=== PATIENT | male | born 1960 | race African-American/Black ===

== ENCOUNTER → 2023-10-02 15:21 | Outpatient (REF) | payer MEDICARE, BC, SELFPAY ==
[2023-10-02 17:14] LABS: PSA, Total - Screen 2.54 ng/ml (0.0-4.0)
== END ==
LOC: REG 15:21
PROVIDERS: ATTENDING PHYSICIAN Surgery; FAMILY PHYSICIAN Internal Medicine Cardiovascular Disease
DX: Z12.5 Encounter for screening for malignant neoplasm of prostate (principal)
CPT/HCPCS: 36415; G0103

== ENCOUNTER → 2024-10-17 17:07 | Outpatient (REF) | payer MEDICARE, BC, SELFPAY ==
[2024-10-17 18:23] LABS: PSA, Total - Diagnostic 2.21 ng/ml (0.0-4.0)
== END ==
LOC: REG 17:07
PROVIDERS: ATTENDING PHYSICIAN Surgery; FAMILY PHYSICIAN Family Medicine; REFERRING PHYSICIAN Internal Medicine Nephrology
DX: Z12.5 Encounter for screening for malignant neoplasm of prostate (principal); N40.1 Benign prostatic hyperplasia with lower urinary tract symptoms
CPT/HCPCS: 36415; 84153

== ENCOUNTER 2025-03-13 10:04 | Inpatient (IN) | payer MEDICARE, BC, SELFPAY ==
[2024-09-20 14:14] VITALS: BMI 31.1
[2024-09-20 14:25] LABS: Hematocrit 40.2 % (39.0-52.0); Hemoglobin 13.6 g/dL (13.0-18.0); Mean Corp Hgb Conc. 33.8 g/dL (33.0-37.0); Mean Corpuscular Volume 91.8 fL (80.0-94.0); Platelet Count 121 10^3/uL (130-400); Red Cell Dist. Width 13.8 % (11.5-14.5)
[2024-09-20 14:31] LABS: ALT (SGPT) 47 U/L (0-50); AST (SGOT) 39 U/L (17-59); Albumin 4.4 g/dl (3.5-5.0); Alkaline Phosphatase 95 U/L (38-126); Blood Urea Nitrogen 24 mg/dl (9-20); Calcium 9.9 mg/dl (8.4-10.2); Carbon Dioxide 37 mmol/L (22-30); Chloride 99 mmol/L (98-107); Estimated Creatinine Clearance 84 ml/min; Glucose 83 mg/dl (70-99); Potassium 3.4 mmol/L (3.5-5.1); Sodium 142 mmol/L (135-145); Total Protein 6.8 g/dl (6.3-8.2); eGFR > 60.00
[2024-09-20 15:03] LABS: Glycohemoglobin (HgbA1c) 5.0 % (4.0-5.6)
[2024-09-20 18:25] VITALS: BMI 31.1
--- NOTE | 2024-09-21 09:33 | CM ---
Addendum entered by Spring Benavides RN 09/22/24 16:54:
CM spoke with patient regarding his post operative discharge services. Patient stated that he lives alone and his family and friends are out of state. Patient further stated that he has been to rehab in the past after his kidney transplant and would
be agreeable to going again. CM stated that SNF may not be covered as it would not be a guarantee that he would meet the three midnight threshold for Medicare SNF coverage. CM discussed private pay aides in the home, but patient states that he would
not be able to afford it.
Patient did stated that he was at his [employer] for clearance and was informed that they will post pone surgery until Cardiology work up is complete.
CM will remain available as needed.
Addendum entered by Spring Benavides RN 09/22/24 12:36:
CM called patient and he advised that he was driving to two doctor appointments. Patient will call CM back to discuss his concerns .
Addendum entered by Spring Benavides RN 09/22/24 12:33:
CM left message to discuss home care options.
Original Note:
SG spoke with Deonte at [facility] offer to confirm patient's OR date. CM reviewed chart. CM left message for patient to discuss post op care.
--- NOTE | 2025-02-02 15:52 | CM ---
Addendum entered by Spring Benavides RN 02/23/25 13:02:
Cm spoke with patient at length regarding home care options. Patient has been known to [facility]. CM sent referral via care port.
Addendum entered by Spring Benavides RN 02/23/25 11:53:
CM was updated by SARAI Meraz that patient will need home care. Cm left message to discuss home care options.
Addendum entered by Spring Benavides RN 02/02/25 15:58:
Patient stated that he is currently not receiving Medicaid.
Original Note:
CM spoke with patient at length regarding discharge planning. Patient asserts that he has not friends or family to assist him post operatively. Patient stated that he will have to take an Uber to his surgery, but may have a friend be able to drive
him home after. Patient does have a history of VN, but is currently not on service. Patient has been to SNF in the past at [facility] in [place] and he would be agreeable to placement in [facility]. CM attempted offered private pay HIDE GRADER care, but
patient does not have the funds to pay for private pay aids.
Patient stated that since he has been disable for 'a long time' patient is unable to 'make friends' as he is housebound due to the pain in his knees. He feels he is unable to care for himself post operatively due to his disability. Patient had been
able to drive himself to his HD appointments in the past, but his knee pain is restricting his ability to leave the home.
CM advise that he would have to stay three midnights if placement was determined to be his discharge plan.
CM will remain available as needed.
[2025-02-21 14:09] VITALS: BMI 31.3
[2025-02-21 15:02] LABS: ALT (SGPT) 29 U/L (0-50); AST (SGOT) 30 U/L (17-59); Albumin 4.1 g/dl (3.5-5.0); Alkaline Phosphatase 78 U/L (38-126); Blood Urea Nitrogen 23 mg/dl (9-20); Calcium 10.0 mg/dl (8.4-10.2); Carbon Dioxide 31 mmol/L (22-30); Chloride 101 mmol/L (98-107); Estimated Creatinine Clearance 84 ml/min; Glucose 86 mg/dl (70-99); Potassium 3.8 mmol/L (3.5-5.1); Sodium 136 mmol/L (135-145); Total Protein 6.4 g/dl (6.3-8.2); eGFR > 60.00
[2025-02-21 15:05] LABS: Hematocrit 39.8 % (39.0-52.0); Hemoglobin 13.4 g/dL (13.0-18.0); Mean Corp Hgb Conc. 33.7 g/dL (33.0-37.0); Mean Corpuscular Volume 89.4 fL (80.0-94.0); Platelet Count 104 10^3/uL (130-400); Red Cell Dist. Width 14.3 % (11.5-14.5)
[2025-02-21 16:07] VITALS: BMI 31.3
[2025-02-22 08:54] LABS: Glycohemoglobin (HgbA1c) 5.2 % (4.0-5.6)
--- NOTE | 2025-03-10 16:13 | CM ---
Patient called this Cm stating that he made an outpatient appointment at [facility] for 03/16. He has alos made arrangements with the [facility] for transportation. CM advised that patient could not have home care and outpatient PT> Patient discussed SNF and
patient would be agreeable to placement in the [facility].
Patient stated that he has no help at home and his friends are away. He will contact his friend to see if they are able to provide transportation home. CM advised that PT will evaluate patient and make further recommendations.
PLAN: Pending PT evaluation.
[2025-03-13] VITALS (10 sets, daily range): BP systolic 121–164; BP diastolic 62–79; BMI 31.3
[2025-03-13] MEDS: NORMOSOL-R/PLASMALYTE-A 1000 IV ×2 (10:54→18:22)
[2025-03-13] MEDS: TYLENOL 650 MG PO ×4 (10:55→23:15)
--- NOTE | 2025-03-13 11:04 | W.PN.ORTHO ---
Today's Communication / Plan
-
DISCHARGE DESTINATION: Tentatively home with PT and VN. Patient is
quite unstable, which is multifactorial due to end-stage joint
disease of both knees as well as degenerative disc disease and
spinal stenosis, which appears to be affecting right foot with
potential footdrop on exam. He does ambulate with device and
struggles with activities of daily living at present. We will
arrange for home care. In the event he is unsafe
functionally, he will be transferred to skilled facility rehab for
further care. We will re-evaluate day of discharge.
Assessment
.
Dressing:
Clean, dry and intact.
Assessment:
Renal transplant
-no nephrotoxic agents
-taper steroid for pain then resume home dose OP
-IVF
-BMP/hgb POD#1-low threshold for transfusion given risk of EDUARDO
Plan
.
Surgery / Date: R TKA Dr Mills 03/13/25
DVT Prophylaxis: Other (Eliquis 2.5mg bid + SCD)
Activity:
Out of bed.
PT/OT
Discharge Plan: Home w/ VN and SNF
Vital Signs and Labs
.
Vital Signs and Labs:
Lab Results
02/21/25 13:35
02/21/25 13:35
Temp Pulse Resp BP Pulse Ox
97.4 F 51 16 159/69 97
03/13/25 10:42 03/13/25 10:42 03/13/25 10:42 03/13/25 10:42 03/13/25 10:42
--- NOTE | 2025-03-13 11:32 | W.DS.TRANS ---
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
-
Discharge Instructions:
Discharge Diagnosis/Procedures R TKA Dr Mills 03/13/25
Diet As tolerated
Activity With Walker
Driving Restrictions No driving
Bathing Restrictions OK to Shower
Other Services PT,VN
Instructions:
Stand-Alone Forms: Total Hip/Knee Replacement D/C
Changes to Home Medications: Yes
Discharge Medications:
DC Medications w/original date entered in [employer]
azelastine 137 mcg (0.1 %) nasal spray 2 spray intranasal DAILY 09/02/24
benzonatate 100 mg capsule 100 mg PO .TIDPRN Cough 09/02/24
cholecalciferol (vitamin D3) 125 mcg (5,000 unit) tablet (Vitamin D3) 125 mcg PO DAILY 09/02/24
famotidine 20 mg tablet 20 mg PO DAILY 09/02/24
levothyroxine 75 mcg tablet 75 mcg PO DAILY 09/02/24
lovastatin 10 mg tablet 10 mg PO QPM 09/02/24
prednisone 5 mg tablet 5 mg PO DAILY 09/02/24
Held on 03/13/25. Instructions: Resume on 03/20/25.
tacrolimus 1 mg capsule,extended release 24 hr 1 mg PO BID 09/02/24
mupirocin 2 % topical ointment 1 applic intranasal BID #1 tube 09/20/24
melatonin 3 mg tablet 3 mg PO HS PRN insomnia 02/20/25
metoprolol succinate 25 mg tablet,extended release 24 hr 25 mg PO HS 02/20/25
sacubitril 24 mg-valsartan 26 mg tablet (Entresto) 1 tab PO BID 02/20/25
apixaban 2.5 mg tablet (Eliquis) 2.5 mg PO BID Blood clot prevention/tx #90 tabs 02/21/25
famotidine 20 mg tablet 20 mg PO HS GI prophylaxis #30 tabs 02/21/25
ondansetron 4 mg disintegrating tablet 4 mg PO Q6H PRN n/v #20 tabs 02/21/25
oxycodone 5 mg tablet 5 mg PO Q6H PRN 1 tab moderate pain, 2 tabs severe pain #30 tabs 02/21/25
prednisone 10 mg tablet 40 mg (4 x 10 mg) PO TAPER inflammation #10 tabs 02/21/25
gabapentin 100 mg tablet 100 mg PO TID #0 tabs 03/13/25
nifedipine 30 mg tablet,extended release 24 hr 30 mg PO BID #0 tabs 03/13/25
Home Medication Changes
apixaban 2.5 mg tablet (Eliquis) 2.5 mg PO BID Blood clot prevention/tx #90 tabs 02/21/25
famotidine 20 mg tablet 20 mg PO HS GI prophylaxis #30 tabs 02/21/25
ondansetron 4 mg disintegrating tablet 4 mg PO Q6H PRN n/v #20 tabs 02/21/25
oxycodone 5 mg tablet 5 mg PO Q6H PRN 1 tab moderate pain, 2 tabs severe pain #30 tabs 02/21/25
prednisone 10 mg tablet 40 mg (4 x 10 mg) PO TAPER inflammation #10 tabs 02/21/25
gabapentin 100 mg tablet 100 mg PO TID #0 tabs 03/13/25
Pending Results: No
[2025-03-13] MEDS: ROXICODONE 10 MG PO (18:23)
[2025-03-13] MEDS: LIPITOR 10 MG PO (18:23)
[2025-03-13] MEDS: SYNTHROID PO (18:52)
[2025-03-13] MEDS: SENOKOT 17.2 MG PO (20:32)
[2025-03-13] MEDS: COLACE 100 MG PO (20:32)
[2025-03-13] MEDS: PROGRAF 1 MG PO (20:33)
[2025-03-13] MEDS: ELIQUIS 2.5 MG PO (20:33)
[2025-03-13] MEDS: ENTRESTO 24 MG/26 MG 1 TAB PO (20:34)
[2025-03-13] MEDS: ANCEF 5 IV (20:36)
[2025-03-13] MEDS: DECADRON 4 MG PO (20:36)
[2025-03-13] MEDS: PROCARDIA XL (EXTENDED RELEASE) 30 MG PO (20:36)
[2025-03-13] MEDS: BACTROBAN 2% OINTMENT 1 APPLIC NASAL (20:37)
[2025-03-13] MEDS: NEURONTIN 300 MG PO (22:56)
[2025-03-13] MEDS: TOPROL XL 25 MG PO (22:56)
[2025-03-13] MEDS: MELATONIN 3 MG PO (22:57)
[2025-03-13] MEDS: PEPCID 20 MG PO (22:57)
[2025-03-14] VITALS (9 sets, daily range): BP systolic 122–182; BP diastolic 61–78; PULSE 60–84; O2SAT 96–97
[2025-03-14] MEDS: ZOFRAN 4 MG IV ×2 (02:42→12:48)
[2025-03-14] MEDS: ANCEF 5 IV (04:29)
[2025-03-14] MEDS: TYLENOL 650 MG PO ×5 (04:33→23:22)
[2025-03-14] MEDS: SYNTHROID 75 MCG PO (06:29)
[2025-03-14 07:39] LABS: Hemoglobin 13.4 g/dL (13.0-18.0)
[2025-03-14 08:11] LABS: Blood Urea Nitrogen 17 mg/dl (9-20); Calcium 9.2 mg/dl (8.4-10.2); Carbon Dioxide 33 mmol/L (22-30); Chloride 100 mmol/L (98-107); Estimated Creatinine Clearance 105 ml/min; Glucose 120 mg/dl (70-99); Potassium 3.6 mmol/L (3.5-5.1); Sodium 139 mmol/L (135-145); eGFR > 60.00
[2025-03-14] MEDS: ELIQUIS 2.5 MG PO ×2 (08:37→19:52)
[2025-03-14] MEDS: SENOKOT 17.2 MG PO ×2 (08:37→19:52)
[2025-03-14] MEDS: COLACE 100 MG PO ×2 (08:37→19:47)
[2025-03-14] MEDS: DECADRON 4 MG PO ×2 (08:38→19:52)
[2025-03-14] MEDS: PROGRAF 1 MG PO ×2 (08:38→19:52)
[2025-03-14] MEDS: BACTROBAN 2% OINTMENT 1 APPLIC NASAL ×2 (08:38→19:46)
[2025-03-14] MEDS: ENTRESTO 24 MG/26 MG 1 TAB PO ×2 (08:38→19:50)
[2025-03-14] MEDS: ROXICODONE 10 MG PO ×2 (08:40→12:48)
[2025-03-14] MEDS: PROCARDIA XL (EXTENDED RELEASE) PO (08:42)
--- NOTE | 2025-03-14 09:16 | CM ---
Addendum entered by Spring Benavides RN 03/14/25 12:09:
CM spoke with patient. Patient is agreeable to rehab. Patient stated that he would be agreeable to [facility] or [facility]. CM updated [facility] that patient would be ready for discharge on . CM sent updated PT/OT notes.
Addendum entered by Spring Benavides RN 03/14/25 10:06:
Cm was advised that patient will need SNF. CM will discuss options with patient. Patient has been accepted by [facility]. CM will await feedback from [facility].
Original Note:
Cm reviewed medical records. Patient is pending PT/OT evaluation. CM spoke with ortho PA regarding discharge plan. CM will await PT/OT.
--- NOTE | 2025-03-14 09:59 | W.PN.ORTHO ---
Today's Communication / Plan
-
Continue to work w/ PT and OT.
Trend Cr to ensure renal stability.
D/c when clinically stable
Assessment
.
Distal Motor Intact: Yes
Dressing:
Small areas of old bleeding along the incision line.
Assessment:
R knee OA s/p R TKA w/ Dr Mills 03/13/25
DVT prophylaxis - Eliquis 2.5 mg PO BID, b/l venous foot pumps
HTN - BPs stable
PVCs - rhythm stable on tele
- Continue BB
Lower extremity DVT, provoked after renal transplant, 2022 - Eliquis initiated at renally adjusted dose
- Early mobility as tolerated
- Venous foot pumps while immobile
Asthma
Obstructive sleep apnea, resolved with weight loss
- O2 stable on RA
- Decadron w/ transition to Prednisone
- Continue IS
ESRD s/p renal transplant 2022 - Trend Cr
- Minimize nephrotoxins such as NSAIDs
- Promote adequate hydration
- Continue Tacrolimus
- Cefadroxil upon d/c
GERD, remote GI bleed - continue Pepcid
Irritable bowel, mixed - Colace and Senna for now
- Consider Miralax
- Adequate hydration, early mobility at tolerated, and minimizing opioids advised
Degenerative disc disease w/ right foot drop/spinal stenosis
Balance difficulties
- Work w/ PT and OT as able
- Therapy recommending SNF for safety concerns at home
BPH without urinary retention - voiding appropriately
- Flomax prn
Right hand weakness with paresthesia
Essential tremor
Hypothyroidism
Hyperparathyroidism, status post partial parathyroidectomy
Anxiety
History of babesiosis
Lyme's disease 2018
Insomnia
Chronic thrombocytopenia
Obesity, BMI 31.3
Plan
.
Surgery / Date: R TKA w/ Dr Mills 03/13/25
DVT Prophylaxis: Other (Eliquis )
Activity:
Out of bed.
PT/OT
Discharge Plan: SNF
Subjective
.
.:
Patient resting comfortably in his bed.
R knee pain well controlled w/ current pain meds.
Denies any new significant complaints.
AM labs stable.
D/c planning ongoing. PT/OT recommending SNF.
Vital Signs and Labs
.
Vital Signs and Labs:
Lab Results
03/14/25 07:05
03/14/25 07:05
Temp Pulse Resp BP Pulse Ox
98.2 F 56 16 122/66 98
03/14/25 07:20 03/14/25 07:20 03/14/25 07:20 03/14/25 07:20 03/14/25 07:20
Non-invasive Hgb result: 13.4
Physical Exam
-
HEENT: No pallor, cyanosis, or jaundice. Throat clear.
NECK: Supple. No JVD.
RESPIRATORY: Lungs clear to auscultation.
CVS: S1, S2 normal. RRR w/ ectopy.
ABDOMEN: Soft, non-tender. No distension. Obese.
EXTREMITIES: Strength equal, no calf pain with palpation/dorsiflexion. Calves soft.
LEGAL TRANSCRIPTIONIST: AOx3. No focal deficits. metal bonding press operator grossly intact
[2025-03-14] MEDS: PROCARDIA XL (EXTENDED RELEASE) 30 MG PO ×2 (12:03→19:52)
[2025-03-14 13:25] LABS: Platelet Count 127 10^3/uL (130-400)
[2025-03-14] MEDS: TYLENOL PO (16:30)
[2025-03-14] MEDS: NEURONTIN 100 MG PO (16:49)
[2025-03-14] MEDS: LIPITOR 10 MG PO (18:24)
[2025-03-14] MEDS: ROXICODONE 5 MG PO (18:24)
[2025-03-14] MEDS: NEURONTIN 300 MG PO (21:05)
[2025-03-14] MEDS: MELATONIN 3 MG PO (21:06)
[2025-03-14] MEDS: PEPCID 20 MG PO (21:06)
[2025-03-14] MEDS: TOPROL XL 25 MG PO (21:06)
[2025-03-15] VITALS (8 sets, daily range): BP systolic 126–150; BP diastolic 67–80; PULSE 56–57; O2SAT 95–98
[2025-03-15] MEDS: ROXICODONE 5 MG PO ×2 (00:24→08:09)
[2025-03-15] MEDS: TYLENOL 650 MG PO ×5 (03:12→20:12)
--- NOTE | 2025-03-15 04:04 | DOWNTIME ---
There was a [employer] Delivery Consultant Downtime on 03/15/2025 from 0100 to 03/15/2025 at 0215. Downtime documentation of patient's care, including medication administrations, has been reconciled in the electronic record per guidelines. Refer to the
patient's paper chart under the miscellaneous tab to see printed paper medication records and downtime forms.
[2025-03-15] MEDS: SYNTHROID 75 MCG PO (06:09)
[2025-03-15] MEDS: PROCARDIA XL (EXTENDED RELEASE) 30 MG PO ×2 (08:06→20:14)
[2025-03-15] MEDS: PROGRAF 1 MG PO ×2 (08:07→20:11)
[2025-03-15] MEDS: DELTASONE 40 MG PO (08:07)
[2025-03-15] MEDS: ELIQUIS 2.5 MG PO ×2 (08:07→20:11)
[2025-03-15] MEDS: ENTRESTO 24 MG/26 MG 1 TAB PO ×2 (08:07→20:12)
[2025-03-15] MEDS: COLACE 100 MG PO ×2 (08:07→20:12)
[2025-03-15] MEDS: NEURONTIN 100 MG PO (08:07)
[2025-03-15] MEDS: SENOKOT 17.2 MG PO ×2 (08:08→20:11)
--- NOTE | 2025-03-15 08:39 | CM ---
[facility] has accepted for tomorrow transfer.
[facility]
Report
[phone]
--- NOTE | 2025-03-15 09:11 | W.PN.ORTHO ---
Today's Communication / Plan
-
Await BMP results.
Adjust pain meds in an attempt to reduce nausea. Continue to monitor.
D/c when clinically stable.
Assessment
.
Distal Motor Intact: Yes
Dressing:
Small areas of bleeding along the incision line.
Assessment:
R knee OA s/p R TKA w/ Dr Mills 03/13/25
DVT prophylaxis - Eliquis 2.5 mg PO BID, b/l venous foot pumps
HTN - BPs overall stable
PVCs - rhythm stable on tele
- Continue BB
Lower extremity DVT, provoked after renal transplant, 2022 - Eliquis initiated at renally adjusted dose
- Early mobility as tolerated
- Venous foot pumps while immobile
Asthma
Obstructive sleep apnea, resolved with weight loss
- O2 stable on RA
- Decadron w/ transition to Prednisone. Prednisone taper started POD 2
- Continue IS
ESRD s/p renal transplant 2022 - Trend Cr
- Minimize nephrotoxins such as NSAIDs
- Promote adequate hydration
- Continue Tacrolimus
- Cefadroxil upon d/c
GERD, remote GI bleed - continue Pepcid
Irritable bowel, mixed - continue Colace and Senna
- Will add Miralax per preference
- Adequate hydration, early mobility at tolerated, and minimizing opioids advised
Degenerative disc disease w/ right foot drop/spinal stenosis
Balance difficulties
- Work w/ PT and OT as able
- Therapy recommending SNF for safety concerns at home - bed obtained at [facility] for tomorrow
BPH without urinary retention - voiding appropriately
- Flomax prn
Insomnia - will add muscle relaxant HSPRN per pt preference
Chronic thrombocytopenia - platelet count improved POD 1
Right hand weakness with paresthesia
Essential tremor
Hypothyroidism
Hyperparathyroidism, status post partial parathyroidectomy
Anxiety
History of babesiosis
Lyme's disease 2017
Obesity, BMI 31.3
Plan
.
Surgery / Date: R TKA w/ Dr Mills 03/13/25
DVT Prophylaxis: Other (Eliquis BID )
Activity:
Out of bed.
PT/OT
Discharge Plan: SNF
Subjective
.
.:
Patient resting comfortably in bed.
Continues w/ nausea from Oxycodone - will switch to oral Morphine per pt preference. Zofran TID today to stay ahead of nausea.
Denies any other new significant complaints.
BMP pending.
Vital Signs and Labs
.
Vital Signs and Labs:
Lab Results
03/14/25 07:05
Temp Pulse Resp BP Pulse Ox
98.6 F 67 16 150/75 96
03/15/25 03:00 03/15/25 03:00 03/15/25 03:00 03/15/25 08:06 03/15/25 03:00
Non-invasive Hgb result: 12.1
Physical Exam
-
HEENT: No pallor, cyanosis, or jaundice. Throat clear.
NECK: Supple. No JVD.
RESPIRATORY: Lungs clear to auscultation.
CVS: S1, S2 normal. RRR.�
ABDOMEN: Soft, non-tender. No distension. Obese.
EXTREMITIES: Expected post-surgical R knee edema. Strength equal, no calf pain with palpation/dorsiflexion. Calves soft. Chronic R-sided foot drop.
VICE PRESIDENT OF NURSING: AOx3. No focal deficits. front desk receptionist grossly intact
[2025-03-15 09:43] LABS: Blood Urea Nitrogen 17 mg/dl (9-20); Calcium 10.2 mg/dl (8.4-10.2); Carbon Dioxide 35 mmol/L (22-30); Chloride 97 mmol/L (98-107); Estimated Creatinine Clearance 105 ml/min; Glucose 94 mg/dl (70-99); Potassium 3.5 mmol/L (3.5-5.1); Sodium 139 mmol/L (135-145); eGFR > 60.00
--- NOTE | 2025-03-15 10:42 | CM ---
CM updated patient with plan for [facility] tomorrow.
Patient requested assistance with his car, as his friends will be picking it up from the parking lot this weekend. He also asked if security can assist in obtaining his bag from his car. CM spoke with security and they will assist patient with car
and retrieving his bag.
[2025-03-15] MEDS: MIRALAX 17 GRAMS PO (12:16)
[2025-03-15] MEDS: LIDOCAINE 4% PATCH 2 PATCH TOPICAL (12:17)
[2025-03-15] MEDS: NEURONTIN 200 MG PO ×2 (15:33→22:42)
[2025-03-15] MEDS: ZOFRAN 4 MG IV ×2 (15:33→22:45)
[2025-03-15] MEDS: LIPITOR 10 MG PO (17:07)
[2025-03-15] MEDS: MORPHINE SULFATE 7.5 MG PO (20:25)
[2025-03-15] MEDS: REMOVE LIDOCAINE PATCH 1 PATCH REMOVE (20:31)
[2025-03-15] MEDS: TOPROL XL 25 MG PO (22:42)
[2025-03-15] MEDS: PEPCID 20 MG PO (22:44)
[2025-03-15] MEDS: MELATONIN 3 MG PO (22:44)
[2025-03-16] MEDS: TYLENOL PO (01:04)
[2025-03-16 03:00] VITALS: BP 115/54
[2025-03-16] MEDS: TYLENOL 650 MG PO ×3 (04:24→12:41)
[2025-03-16] MEDS: SYNTHROID 75 MCG PO (04:24)
[2025-03-16 05:02] LABS: COVID-19 Antigen Negative (Negative)
[2025-03-16 07:05] VITALS: BP 135/67
[2025-03-16 07:07] LABS: Blood Urea Nitrogen 23 mg/dl (9-20); Calcium 9.9 mg/dl (8.4-10.2); Carbon Dioxide 35 mmol/L (22-30); Chloride 96 mmol/L (98-107); Estimated Creatinine Clearance 94 ml/min; Glucose 85 mg/dl (70-99); Potassium 3.0 mmol/L (3.5-5.1); Sodium 138 mmol/L (135-145); eGFR > 60.00
[2025-03-16] MEDS: PROGRAF 1 MG PO (08:07)
[2025-03-16] MEDS: ENTRESTO 24 MG/26 MG 1 TAB PO (08:07)
[2025-03-16] MEDS: NEURONTIN 200 MG PO (08:08)
[2025-03-16] MEDS: COLACE 100 MG PO (08:08)
[2025-03-16] MEDS: PROCARDIA XL (EXTENDED RELEASE) PO (08:08)
[2025-03-16] MEDS: ELIQUIS 2.5 MG PO (08:08)
[2025-03-16] MEDS: LIDOCAINE 4% PATCH 2 PATCH TOPICAL (08:09)
[2025-03-16] MEDS: KCL 40 MEQ PO (08:09)
[2025-03-16] MEDS: SENOKOT 17.2 MG PO (08:09)
[2025-03-16] MEDS: DELTASONE 40 MG PO (08:09)
[2025-03-16] MEDS: MIRALAX 17 GRAMS PO (08:10)
--- NOTE | 2025-03-16 08:14 | CM ---
CM was updated that patient's discharge is delayed. CM updated Pearl at [facility] regarding delay.
[2025-03-16 10:07] LABS: Magnesium 1.8 mg/dl (1.6-2.3)
[2025-03-16 11:00] VITALS: BP 142/60
--- NOTE | 2025-03-16 12:24 | W.PN.ORTHO ---
Today's Communication / Plan
-
Await potassium result.
D/c today if improvement noted w/ patient understanding to increase dietary potassium.
Assessment
.
Distal Motor Intact: Yes
Dressing:
Small areas of old bleeding along incision line - unchanged since yesterday.
Assessment:
R knee OA s/p R TKA w/ Dr Mills 03/13/25
DVT prophylaxis - Eliquis 2.5 mg PO BID, b/l venous foot pumps
Hypokalemia - apparently acute on chronic as patient reports being on KCl 10 previously
- Previous KCl supplement stopped d/t interaction w/ previous Dicyclomine for IBS
- KCl 40 given this AM. Reassess K+ now
- Pt notably asymptomatic
- Of note, no diuretic use. Magnesium WNL. No GI losses. Assume at this point low potassium d/t poor dietary intake and current corticosteroid use as anti-inflammatory
- Discussed in detail w/ patient. Pt can be d/c if repeat K+ showing improvement. Pt declines KCl supplement at this time; he prefers dietary based K+ instead. Does report he has not been eating bananas here as he normally dose at home.
- Will plan to repeat K+ upon d/c to ensure stability
HTN - BPs overall stable
PVCs - rhythm stable on tele
- Continue BB
Lower extremity DVT, provoked after renal transplant, 2022 - Eliquis initiated at renally adjusted dose
- Early mobility as tolerated
- Venous foot pumps while immobile
Asthma
Obstructive sleep apnea, resolved with weight loss
- O2 stable on RA
- Decadron w/ transition to Prednisone. Prednisone taper started POD 2
- Continue IS
ESRD s/p renal transplant 2022 - Cr trends stable over last 3 days
- Minimize nephrotoxins such as NSAIDs
- Promote adequate hydration
- Continue Tacrolimus
- Cefadroxil upon d/c
GERD, remote GI bleed - continue Pepcid
Irritable bowel, mixed - continue Colace and Senna
- Did add Miralax per preference
- Adequate hydration, early mobility at tolerated, and minimizing opioids advised
Degenerative disc disease w/ right foot drop/spinal stenosis
Balance difficulties
- Work w/ PT and OT as able
- Therapy recommending SNF for safety concerns at home - bed obtained at [facility] for today.
BPH without urinary retention - voiding appropriately
- Flomax prn
Insomnia - did add Methocarbamol HSPRN per pt preference (safe for CKD per pharmacy)
Chronic thrombocytopenia - platelet count improved POD 1
- Expect platelet count to improve further w/ steroid taper
Right hand weakness with paresthesia
Essential tremor
Hypothyroidism
Hyperparathyroidism, status post partial parathyroidectomy
Anxiety
History of babesiosis
Lyme's disease 2017
Obesity, BMI 31.3
Plan
.
Surgery / Date: R TKA w/ Dr Mills 03/13/25
DVT Prophylaxis: Other (Eliquis )
Activity:
Out of bed.
PT/OT
Discharge Plan: SNF
Subjective
.
.:
Patient resting comfortably in his bed.
R knee pain better tolerated w/ switch from Oxycodone to Morphine. Nausea also improved.
Mild hypokalemia this AM. Pt notably asymptomatic.
Pt eager for potential d/c today to SNF.
Vital Signs and Labs
.
Vital Signs and Labs:
Lab Results
03/14/25 07:05
Temp Pulse Resp BP Pulse Ox
98.6 F 50 16 142/60 98
03/16/25 11:00 03/16/25 11:00 03/16/25 11:00 03/16/25 11:00 03/16/25 11:00
Non-invasive Hgb result: 11.1
Physical Exam
-
HEENT: No pallor, cyanosis, or jaundice. Throat clear.
NECK: Supple. No JVD.
RESPIRATORY: Lungs clear to auscultation.
CVS: S1, S2 normal. RRR.�Occasional PVCs
ABDOMEN: Soft, non-tender. No distension.
EXTREMITIES: Strength equal, no calf pain with palpation/dorsiflexion. Calves soft.
ON SITE MANAGER: AOx3. No focal deficits. editor grossly intact
[2025-03-16 12:48] LABS: Potassium 3.7 mmol/L (3.5-5.1)
--- NOTE | 2025-03-16 13:24 | W.DS.TRANS ---
DC Summary - Editor Greeting Card
-
Discharge Instructions:
Discharge Diagnosis/Procedures R knee OA s/p R TKA Dr Mills 03/13/25
Diet Regular
Additional Diets Increase dietary potassium to help acute on
chronic hypokalemia.
Adequate hydration, minimize opioids, and wear
ALLYSON stockings to prevent low blood pressure/
dizziness.
Activity With Walker,As tolerated
Driving Restrictions Not until seen by your Dr
Bathing Restrictions OK to Shower
Blood Work Repeat BMP (ATTN: Potassium and BUN/Creatinine)
on Thursday, 03/17, and Thursday, 03/20, with results
forwarded to primary care.
Other Services PT,OT
Wound Care Dressing to be removed 1 week post-surgery.
Saxe to be removed at 2 week follow-up with
surgeon's office.
Instructions:
Stand-Alone Forms: Total Hip/Knee Replacement D/C
Changes to Home Medications: No
Discharge Medications:
DC Medications w/original date entered in [employer]
azelastine 137 mcg (0.1 %) nasal spray 2 spray intranasal DAILY Allergies 09/02/24
benzonatate 100 mg capsule 100 mg PO .TIDPRN Cough 09/02/24
cholecalciferol (vitamin D3) 125 mcg (5,000 unit) tablet (Vitamin D3) 125 mcg PO DAILY Supplement 09/02/24
famotidine 20 mg tablet 20 mg PO DAILY Gastrointestinal Issue 09/02/24
levothyroxine 75 mcg tablet 75 mcg PO DAILY Thyroid 09/02/24
lovastatin 10 mg tablet 10 mg PO QPM High Cholesterol 09/02/24
prednisone 5 mg tablet 5 mg PO DAILY Anti-Inflammatory 09/02/24
Held on 03/14/25. Instructions: Resume on 03/23/25. DO NOT resume until OFF Prednisone taper
tacrolimus 1 mg capsule,extended release 24 hr 1 mg PO BID Transplant 09/02/24
mupirocin 2 % topical ointment 1 applic intranasal BID #1 tube 09/20/24
melatonin 3 mg tablet 3 mg PO HS PRN insomnia 02/20/25
metoprolol succinate 25 mg tablet,extended release 24 hr 25 mg PO HS Blood Pressure 02/20/25
sacubitril 24 mg-valsartan 26 mg tablet (Entresto) 1 tab PO BID Blood Pressure 02/20/25
apixaban 2.5 mg tablet (Eliquis) 2.5 mg PO BID Blood clot prevention/tx #90 tabs 02/21/25
ondansetron 4 mg disintegrating tablet 4 mg PO Q6H PRN n/v #20 tabs 02/21/25
Saccharomyces boulardii 250 mg capsule (Florastor) 250 mg PO DAILY #7 caps 03/14/25
acetaminophen 325 mg tablet 650 mg (2 x 325 mg) PO Q4HWA #30 tabs 03/14/25
cefadroxil 500 mg capsule 500 mg PO DAILY #7 caps 03/14/25
docusate sodium 100 mg capsule 100 mg PO BID #30 caps 03/14/25
nifedipine 30 mg tablet,extended release 24 hr 30 mg PO BID #1 tab 03/14/25
prednisone 10 mg tablet 30 mg (3 x 10 mg) PO TAPER Anti-inflammatory #12 tabs 03/14/25
gabapentin 100 mg tablet 200 mg (2 x 100 mg) PO TID neuropathic pain #20 tabs 03/15/25
lidocaine 4 % topical patch 2 patch topical DAILY #30 ea 03/15/25
methocarbamol 500 mg tablet 500 mg PO HSPRN PRN muscle spasms/insomnia #10 tabs 03/15/25
morphine 15 mg immediate release tablet 15 mg PO Q6H PRN severe pain #14 tabs 03/15/25
polyethylene glycol 3350 17 gram oral powder packet 17 g PO DAILY #1 ea 03/15/25
Home Medication Changes
apixaban 2.5 mg tablet (Eliquis) 2.5 mg PO BID Blood clot prevention/tx #90 tabs 02/21/25
ondansetron 4 mg disintegrating tablet 4 mg PO Q6H PRN n/v #20 tabs 02/21/25
Saccharomyces boulardii 250 mg capsule (Florastor) 250 mg PO DAILY #7 caps 03/14/25
acetaminophen 325 mg tablet 650 mg (2 x 325 mg) PO Q4HWA #30 tabs 03/14/25
cefadroxil 500 mg capsule 500 mg PO DAILY #7 caps 03/14/25
docusate sodium 100 mg capsule 100 mg PO BID #30 caps 03/14/25
prednisone 10 mg tablet 30 mg (3 x 10 mg) PO TAPER Anti-inflammatory #12 tabs 03/14/25 - then resume 5 mg daily dosing
gabapentin 100 mg tablet 200 mg (2 x 100 mg) PO TID neuropathic pain #20 tabs 03/15/25
lidocaine 4 % topical patch 2 patch topical DAILY #30 ea 03/15/25
methocarbamol 500 mg tablet 500 mg PO HSPRN PRN muscle spasms/insomnia #10 tabs 03/15/25
morphine 15 mg immediate release tablet 15 mg PO Q6H PRN severe pain #14 tabs 03/15/25
polyethylene glycol 3350 17 gram oral powder packet 17 g PO DAILY #1 ea 03/15/25
Pending Results: No
[2025-03-16 14:20] VITALS: BP 143/63
== END 2025-03-16 16:01 | DRG 470 ==
LOC: 2 SOUTH 10:04
PROVIDERS: Physician Assistant; Physician Assistant Medical; ADMITTING PHYSICIAN Specialist; FAMILY PHYSICIAN Family Medicine; REFERRING PHYSICIAN Internal Medicine Nephrology
PROC: 0SRC0J9 Replacement of Right Knee Joint with Synthetic Substitute, Cemented, Open Approach (ICD-10-PCS; 2025-03-13)
DX: M17.11 Unilateral primary osteoarthritis, right knee (principal); Z94.0 Kidney transplant status; Z68.31 Body mass index [BMI] 31.0-31.9, adult; E66.9 Obesity, unspecified; I49.3 Ventricular premature depolarization; I10 Essential (primary) hypertension; N40.0 Benign prostatic hyperplasia without lower urinary tract symptoms; M51.369 Other intervertebral disc degeneration, lumbar region without mention of lumbar back pain or lower extremity pain; M21.371 Foot drop, right foot; J45.909 Unspecified asthma, uncomplicated; K21.9 Gastro-esophageal reflux disease without esophagitis; G47.33 Obstructive sleep apnea (adult) (pediatric); G47.00 Insomnia, unspecified; E87.6 Hypokalemia; Z86.718 Personal history of other venous thrombosis and embolism; K58.2 Mixed irritable bowel syndrome; Z79.01 Long term (current) use of anticoagulants; Z91.040 Latex allergy status; Z11.52 Encounter for screening for COVID-19
CPT/HCPCS: 36415; 73560; 80048; 80053; 83036; 83735; 84132; 85018; 85027; 85049; 87070; 87811; 97110; 97163; 97167; 97530; 97535; C1713; C1776

== ENCOUNTER → 2025-03-17 11:28 | Outpatient (REF) | payer MEDICARE, BC, SELFPAY ==
[2025-03-17 13:08] LABS: Blood Urea Nitrogen 26 mg/dl (9-20); Calcium 9.6 mg/dl (8.4-10.2); Carbon Dioxide 35 mmol/L (22-30); Chloride 97 mmol/L (98-107); Glucose 76 mg/dl (70-99); Potassium 3.1 mmol/L (3.5-5.1); Sodium 135 mmol/L (135-145); eGFR > 60.00
== END ==
LOC: OLABWHC 11:28
PROVIDERS: ATTENDING PHYSICIAN Family Medicine
DX: E87.6 Hypokalemia (principal); I10 Essential (primary) hypertension; N19 Unspecified kidney failure
CPT/HCPCS: 36415; 80048

== ENCOUNTER → 2025-03-20 10:55 | Outpatient (REF) | payer MEDICARE, BC, SELFPAY ==
[2025-03-20 12:24] LABS: ALT (SGPT) 25 U/L (0-50); AST (SGOT) 27 U/L (17-59); Albumin 3.7 g/dl (3.5-5.0); Alkaline Phosphatase 54 U/L (38-126); Blood Urea Nitrogen 22 mg/dl (9-20); Calcium 9.6 mg/dl (8.4-10.2); Carbon Dioxide 35 mmol/L (22-30); Chloride 97 mmol/L (98-107); Glucose 78 mg/dl (70-99); Magnesium 2.2 mg/dl (1.6-2.3); Potassium 3.3 mmol/L (3.5-5.1); Sodium 135 mmol/L (135-145); Total Protein 6.0 g/dl (6.3-8.2); eGFR > 60.00
[2025-03-20 12:28] LABS: Hematocrit 37.5 % (39.0-52.0); Hemoglobin 12.4 g/dL (13.0-18.0); Mean Corp Hgb Conc. 33.1 g/dL (33.0-37.0); Mean Corpuscular Volume 89.7 fL (80.0-94.0); Platelet Count 154 10^3/uL (130-400); Red Cell Dist. Width 14.0 % (11.5-14.5)
== END ==
LOC: OLABWHC 10:55
PROVIDERS: ATTENDING PHYSICIAN Family Medicine
DX: I10 Essential (primary) hypertension (principal)
CPT/HCPCS: 36415; 80053; 83735; 85027

== ENCOUNTER → 2025-04-03 09:51 | Outpatient (REF) | payer OTHER, MEDICARE, BC, SELFPAY ==
[2025-04-03 10:59] LABS: Blood Urea Nitrogen 27 mg/dl (9-20); Calcium 9.8 mg/dl (8.4-10.2); Carbon Dioxide 32 mmol/L (22-30); Chloride 101 mmol/L (98-107); Glucose 75 mg/dl (70-99); Potassium 3.8 mmol/L (3.5-5.1); Sodium 138 mmol/L (135-145); eGFR > 60.00
== END ==
LOC: OLABWHC 09:51
PROVIDERS: ATTENDING PHYSICIAN Family Medicine
DX: E78.5 Hyperlipidemia, unspecified (principal); I10 Essential (primary) hypertension
CPT/HCPCS: 36415; 80048

== ENCOUNTER → 2025-04-26 13:57 | Outpatient (REF) | payer MEDICARE, BC, SELFPAY | LOC: RAD 13:57 | PROVIDERS: ATTENDING PHYSICIAN Specialist; FAMILY PHYSICIAN Family Medicine | DX: Z96.651 Presence of right artificial knee joint (principal); M79.661 Pain in right lower leg | CPT/HCPCS: 93971 ==

== ENCOUNTER 2025-06-12 07:58 | Inpatient (IN) | payer MEDICARE, BC, SELFPAY ==
--- NOTE | 2025-05-22 14:52 | CM ---
Orthopedic Case Management Assessment
Demographics: confirmed
Living situation: patient lives alone in a one story home with 5 steps to enter.
Support Person Post Operatively: None
History of
VN: [facility]
SNF: [facility] in [place]
Outpatient No patient is requesting skilled placement at [facility]
Has patient purchased required equipment: patient has 2 walkers, rollator, cane, raised toilet seat.
PCP: Sanjeev Cho
Pharmacy: [facility] in [place].
Post Operative Discharge Plan: Patient has been scheduled for admit morning of surgery for Left Total Knee Arthroplasty on 06/12/25, case technician reviewed outpatient PT appointment setup or visiting nurses and patient reports that he lives alone and
does not have anyone to transport him to physical therapy appointments and also feels he needs to go to a [facility] facility as he lives alone patient is requesting [facility], case technician reached out to Pearl in admissions at
[facility] requesting a bed for 05/16/25.
[2025-05-22 15:08] LABS: Hematocrit 37.2 % (39.0-52.0); Hemoglobin 12.3 g/dL (13.0-18.0); Mean Corp Hgb Conc. 33.1 g/dL (33.0-37.0); Mean Corpuscular Volume 91.0 fL (80.0-94.0); Platelet Count 148 10^3/uL (130-400); Red Cell Dist. Width 14.2 % (11.5-14.5)
[2025-05-22 15:12] LABS: ALT (SGPT) 18 U/L (0-50); AST (SGOT) 22 U/L (17-59); Albumin 4.1 g/dl (3.5-5.0); Alkaline Phosphatase 90 U/L (38-126); Blood Urea Nitrogen 25 mg/dl (9-20); Calcium 9.3 mg/dl (8.4-10.2); Chloride 97 mmol/L (98-107); Glucose 77 mg/dl (70-99); Potassium 3.3 mmol/L (3.5-5.1); Sodium 137 mmol/L (135-145); Total Protein 6.5 g/dl (6.3-8.2); eGFR > 60.00
[2025-05-22 15:21] LABS: Carbon Dioxide 35 mmol/L (22-30)
[2025-05-23 10:06] LABS: Glycohemoglobin (HgbA1c) 4.9 % (4.0-5.9)
--- NOTE | 2025-06-09 10:19 | CM ---
Patient is requesting skilled placement per patient he had right knee surgery with Dr. Mills in February and went to [facility] skilled after that surgery and he did well, patient is now scheduled for Left total Knee with Dr. Mills
and patient is requesting skilled placement at [facility], caser reached out to Pearl in admissions at [facility] to check on bed availability for patient.
Plan; Skilled placement at [facility].
[2025-06-12] VITALS (19 sets, daily range): BP systolic 142–173; BP diastolic 62–81; PULSE 66–67; O2SAT 100; BMI 30.6
[2025-06-12] MEDS: TYLENOL 650 MG PO ×3 (08:26→23:07)
[2025-06-12] MEDS: BACTROBAN NASAL 1 GRAM NASAL (08:26)
[2025-06-12] MEDS: NORMOSOL-R/PLASMALYTE-A 1000 IV ×2 (08:42→16:51)
--- NOTE | 2025-06-12 09:05 | W.PN.ORTHO ---
Today's Communication / Plan
-
d/c when stable
Assessment
.
Assessment:
Renal transplant
-no nephrotoxic agents
-taper steroid for pain then resume home dose OP
-IVF
-continue immunomodulators
-BMP/hgb POD#1-low threshold for transfusion given risk of EDUARDO
-Cefadroxil ppx renally adjusted
PACs/PVCs
HFpEF
[id number]
-tele
-decrease IVF rate
Balance disturbance
Neuropathy
-fall precautions
BPH-increase Flomax bid and monitor void
Pain control
-MSIR+ Gabapentin at hs+ steroid-resume home MS relaxer
Hx RLE DVT-provoked 2022
-SCD + Eliquis 2.5mg bid
-encourage mobility
Plan
.
Surgery / Date: L TKA Dr Mills 06/12/25
DVT Prophylaxis: Other (-SCD + Eliquis 2.5mg bid)
Activity:
Out of bed.
PT/OT
Discharge Plan: SNF
Discharge Information:
Previously functionally unstable, which is multifactorial due to polyarthritis, DDD/spinal stenosis w/ neuropathy
-which possibly is resulting in myelopathy, affecting right foot with possible footdrop on prior exam. He does
ambulate with device and struggles with activities of daily living. We will arrange for SNF.
Subjective
.
.:
.
Vital Signs and Labs
.
Vital Signs and Labs:
Lab Results
05/22/25 13:47
05/22/25 13:47
Temp Pulse Resp BP Pulse Ox
98.0 F 54 18 153/64 97
06/12/25 08:18 06/12/25 08:18 06/12/25 08:18 06/12/25 08:18 06/12/25 08:18
--- NOTE | 2025-06-12 11:26 | CM ---
Chart reviewed and patient is requesting skilled placement at [facility] at discharge. reservation manager has faxed referral to [facility] admissions. Waiting on a determination on a bed from admissions at [facility].
Plan; Waiting on determination from [facility] admissions.
[2025-06-12] MEDS: PEPCID 20 MG PO (17:01)
[2025-06-12] MEDS: ANCEF 5 IV (17:01)
[2025-06-12] MEDS: LIPITOR 10 MG PO (17:01)
[2025-06-12] MEDS: MORPHINE SULFATE 15 MG PO (17:01)
--- NOTE | 2025-06-12 18:07 | PTCARENOTE ---
Pt arrived 1630 from PACU. VSS. Oriented to room and call diamond. Primaseal scant amount of old drainage. IVF infusing. Bed locked and in lowest position. Call diamond in reach.
[2025-06-12] MEDS: BACTROBAN 2% OINTMENT 1 APPLIC NASAL (20:14)
[2025-06-12] MEDS: DECADRON 4 MG IV (20:14)
[2025-06-12] MEDS: SENOKOT 17.2 MG PO (20:15)
[2025-06-12] MEDS: FLOMAX 0.4 MG PO (20:15)
[2025-06-12] MEDS: LYRICA 75 MG PO (20:15)
[2025-06-12] MEDS: ENTRESTO 24 MG/26 MG 1 TAB PO (20:15)
[2025-06-12] MEDS: PROCARDIA XL (EXTENDED RELEASE) 30 MG PO (20:15)
[2025-06-12] MEDS: COLACE 100 MG PO (20:16)
[2025-06-12] MEDS: ELIQUIS 2.5 MG PO (20:16)
[2025-06-12] MEDS: PROGRAF 2 MG PO (21:44)
[2025-06-12] MEDS: MELATONIN 3 MG PO (21:44)
[2025-06-12] MEDS: MYFORTIC DELAYED REL. 360 MG PO (21:44)
[2025-06-12] MEDS: BENTYL 40 MG PO (21:44)
[2025-06-12] MEDS: TOPROL XL 25 MG PO (21:44)
[2025-06-12] MEDS: MIRALAX 17 GRAMS PO (21:45)
[2025-06-12] MEDS: PROGRAF 0.5 MG PO (21:45)
[2025-06-13] VITALS (7 sets, daily range): BP systolic 126–144; BP diastolic 59–65; PULSE 60; O2SAT 99; BMI 30.2
[2025-06-13] MEDS: ANCEF 5 IV (01:09)
[2025-06-13] MEDS: TYLENOL 650 MG PO ×6 (03:00→23:52)
[2025-06-13] MEDS: SYNTHROID 75 MCG PO (05:04)
[2025-06-13] MEDS: ENTRESTO 24 MG/26 MG 1 TAB PO ×2 (08:03→20:17)
[2025-06-13] MEDS: COLACE 100 MG PO ×2 (08:03→20:14)
[2025-06-13] MEDS: MORPHINE SULFATE 15 MG PO ×2 (08:03→17:19)
[2025-06-13] MEDS: ELIQUIS 2.5 MG PO ×2 (08:03→20:15)
[2025-06-13] MEDS: ENVARSUS XR 2 MG PO (08:03)
[2025-06-13] MEDS: PROCARDIA XL (EXTENDED RELEASE) 30 MG PO (08:03)
[2025-06-13] MEDS: FLOMAX 0.4 MG PO ×2 (08:04→20:17)
[2025-06-13] MEDS: MYFORTIC DELAYED REL. 360 MG PO ×2 (08:04→20:17)
[2025-06-13] MEDS: DECADRON 4 MG IV (08:04)
[2025-06-13] MEDS: LYRICA PO (08:04)
[2025-06-13] MEDS: SENOKOT 17.2 MG PO ×2 (08:04→20:18)
[2025-06-13] MEDS: PEPCID 20 MG PO (08:04)
[2025-06-13] MEDS: BACTROBAN 2% OINTMENT 1 APPLIC NASAL ×2 (08:04→20:14)
[2025-06-13 08:25] LABS: Hemoglobin 12.4 g/dL (13.0-18.0)
[2025-06-13 08:46] LABS: Blood Urea Nitrogen 22 mg/dl (9-20); Calcium 9.0 mg/dl (8.4-10.2); Carbon Dioxide 32 mmol/L (22-30); Chloride 97 mmol/L (98-107); Estimated Creatinine Clearance 83 ml/min; Glucose 121 mg/dl (70-99); Potassium 3.3 mmol/L (3.5-5.1); Sodium 135 mmol/L (135-145); eGFR > 60.00
--- NOTE | 2025-06-13 10:18 | CM ---
Addendum entered by Laurie Moss 06/13/25 12:15:
Bed is available at [facility] on , 06/15/25, patient is aware.
Original Note:
Chart reviewed and plan is for skilled placement, patient has selected [facility] where he went last time after surgery, multi calls placed to [facility] admissions and still waiting on final determination.
Plan; Skilled placement at [facility] waiting on determination from admissions at [facility].
[2025-06-13] MEDS: KCL 20 MEQ PO (11:09)
--- NOTE | 2025-06-13 12:33 | W.PN.ORTHO ---
Today's Communication / Plan
-
patient will require additional rehab needs prior to returning home at mod I level-d/c when stable
Assessment
.
Dressing:
Clean, dry and intact.
Assessment:
Iicnjscewpo-azegyqm-euwif mag and phos levels
Renal transplant
--minimize and dose adjust nephrotoxic agents-patient requesting home dosing of Gabapentin, initially decreased p/o to assess renal function following surgery--discussed w/ Dr Klein-Nephrology--given his kidney function has remained stable at
baseline-we will resume home dose and monitor CMP closely
--taper steroid for pain then resume home dose OP
--IVF
--continue immunomodulators
--Cefadroxil ppx renally adjusted
PACs/PVCs
HFpEF
XR-zmlb-[id number]
--stable on tele
--decreased IVF rate-volume status euvolemic
Balance disturbance
Neuropathy
--fall precautions
BPH-increase Flomax bid -voiding well
Pain control
--MSIR+ Gabapentin+ steroid-resume home MS relaxer-pain well controlled
Hx RLE DVT-provoked 2022
--SCD + Eliquis 2.5mg bid
--encourage mobility
Plan
.
Surgery / Date: L TKA Dr Mills 06/12/25
DVT Prophylaxis: Other (Eliquis + SCD )
Activity:
Out of bed.
PT/OT
Discharge Plan: SNF
Subjective
.
.:
Patient resting comfortably.
Vital Signs and Labs
.
Vital Signs and Labs:
Lab Results
06/13/25 07:52
06/13/25 07:52
Temp Pulse Resp BP Pulse Ox
98.4 F 58 16 127/59 99
06/13/25 11:30 06/13/25 11:30 06/13/25 11:30 06/13/25 11:30 06/13/25 11:30
Non-invasive Hgb result: 13.6
Physical Exam
-
HEENT: No pallor, cyanosis, or jaundice. Throat clear.
NECK: Supple. No JVD.
RESPIRATORY: Lungs clear to auscultation.
CVS: S1, S2 normal. RRR.� No murmur, rub or gallop.
ABDOMEN: Soft, non-tender. No distension. BS+/normal.
EXTREMITIES: strength equal, no calf pain with palpation
FRAME OPERATOR: AOx3. No focal deficits. glove turner and former automatic grossly intact
[2025-06-13 13:20] LABS: Magnesium 1.6 mg/dl (1.6-2.3)
[2025-06-13] MEDS: NEURONTIN 200 MG PO ×2 (15:32→22:32)
[2025-06-13] MEDS: LIPITOR 10 MG PO (17:19)
[2025-06-13] MEDS: PROCARDIA XL (EXTENDED RELEASE) PO (20:18)
[2025-06-13] MEDS: PROGRAF 0.5 MG PO (22:32)
[2025-06-13] MEDS: BENTYL 40 MG PO (22:32)
[2025-06-13] MEDS: MELATONIN 3 MG PO (22:32)
[2025-06-13] MEDS: TOPROL XL 25 MG PO (22:33)
[2025-06-13] MEDS: PROGRAF 2 MG PO (22:33)
[2025-06-13] MEDS: MIRALAX 17 GRAMS PO (22:33)
[2025-06-14] VITALS (8 sets, daily range): BP systolic 119–166; BP diastolic 44–75; PULSE 53–55; O2SAT 100; BMI 31.0
[2025-06-14] MEDS: TYLENOL 650 MG PO ×5 (04:08→20:13)
[2025-06-14] MEDS: SYNTHROID 75 MCG PO (05:14)
[2025-06-14] MEDS: ENTRESTO 24 MG/26 MG 1 TAB PO ×2 (07:58→20:12)
[2025-06-14] MEDS: PROCARDIA XL (EXTENDED RELEASE) PO ×2 (07:58→20:13)
[2025-06-14] MEDS: MYFORTIC DELAYED REL. 360 MG PO ×2 (07:59→20:13)
[2025-06-14] MEDS: COLACE 100 MG PO ×2 (07:59→20:12)
[2025-06-14] MEDS: SENOKOT 17.2 MG PO ×2 (07:59→20:13)
[2025-06-14] MEDS: PEPCID 20 MG PO (07:59)
[2025-06-14] MEDS: NEURONTIN 200 MG PO ×3 (07:59→22:09)
[2025-06-14] MEDS: FLOMAX 0.4 MG PO ×2 (07:59→20:12)
[2025-06-14] MEDS: ENVARSUS XR 2 MG PO (07:59)
[2025-06-14] MEDS: ELIQUIS 2.5 MG PO ×2 (07:59→20:12)
[2025-06-14] MEDS: DECADRON 4 MG IV (08:00)
[2025-06-14 08:04] LABS: ALT (SGPT) 12 U/L (0-50); AST (SGOT) 20 U/L (17-59); Albumin 3.3 g/dl (3.5-5.0); Alkaline Phosphatase 60 U/L (38-126); Blood Urea Nitrogen 20 mg/dl (9-20); Calcium 8.9 mg/dl (8.4-10.2); Carbon Dioxide 32 mmol/L (22-30); Chloride 99 mmol/L (98-107); Estimated Creatinine Clearance 93 ml/min; Glucose 99 mg/dl (70-99); Potassium 3.3 mmol/L (3.5-5.1); Sodium 134 mmol/L (135-145); Total Protein 5.5 g/dl (6.3-8.2); eGFR > 60.00
--- NOTE | 2025-06-14 08:36 | CM ---
Patient has been accepted at [facility] tomorrow, 06/15/25, patient will need ambulance transport to skilled facility.
[facility]
Report [phone]
--- NOTE | 2025-06-14 10:00 | W.PN.ORTHO ---
Today's Communication / Plan
-
Continue to monitor renal function/lytes.
D/c likely to [facility] tomorrow if clinically stable.
Assessment
.
Distal Motor Intact: Yes
Dressing:
Clean, dry and intact.
Assessment:
L knee OA s/p L TKA w/ Dr Mills 06/12/25
DVT prophylaxis - Eliquis 2.5 mg PO BID x4 weeks, b/l venous foot pumps
Chronic hypokalemia - stable at 3.3 - will adjust KCl dosing to 40 meq BID (usually on 40 AM, 20 PM) to accommodate for additional IV diuresis today
Renal transplant
--minimize and dose adjust nephrotoxic agents-patient requesting home dosing of Gabapentin, initially decreased p/o to assess renal function following surgery--discussed w/ Dr Klein-Nephrology--given his kidney function has remained stable at
baseline-we will resume home dose and monitor CMP closely
--taper steroid for pain then resume home dose OP
--IVF
--continue immunomodulators
--Cefadroxil ppx renally adjusted
PACs/PVCs
HFpEF
[id number]
--stable on tele
--decreased IVF rate; however, weight up this AM - will give 1x dose of IV Lasix in addition to home Entresto - will watch renal function/lytes closely
Balance disturbance
Neuropathy
-- fall precautions
BPH- increase Flomax bid - voiding well
Pain control
--MSIR+ Gabapentin+ steroid-resume home MS relaxer-pain well controlled
Hx RLE DVT-provoked 2022
--SCD + Eliquis 2.5mg bid
--encourage mobility
Plan
.
Surgery / Date: L TKA w/ Dr Mills 06/12/25
DVT Prophylaxis: Other (Eliquis )
Activity:
Out of bed.
PT/OT
Discharge Plan: SNF
Subjective
.
.:
Patient resting comfortably in his bed.
L knee pain tolerable w/ current pain meds.
Weight noted to be up in comparison to yesterday; however, patient asymptomatic. Physical exam benign.
AM labs stable w/ chronic hypokalemia.
Vital Signs and Labs
.
Vital Signs and Labs:
Lab Results
06/13/25 07:52
06/14/25 06:33
Temp Pulse Resp BP Pulse Ox
98.2 F 52 16 119/44 97
06/14/25 07:50 06/14/25 07:59 06/14/25 07:50 06/14/25 07:59 06/14/25 07:50
Non-invasive Hgb result: 12.4
Physical Exam
-
HEENT: No pallor, cyanosis, or jaundice. Throat clear.
NECK: Supple. No JVD.
RESPIRATORY: Lungs clear to auscultation.
CVS: S1, S2 normal. RRR w/ ectopy.
ABDOMEN: Soft, non-tender. No distension. Obese.
EXTREMITIES: Chronic footdrop noted. No calf pain with palpation/dorsiflexion. Calves soft.
MACHINE III COREMAKER: AOx3. No focal deficits. turbine room attendant grossly intact
[2025-06-14] MEDS: KCL 40 MEQ PO ×2 (10:56→20:12)
[2025-06-14] MEDS: LASIX 20 MG IV (10:57)
[2025-06-14] MEDS: MORPHINE SULFATE 15 MG PO (10:58)
[2025-06-14] MEDS: OCEAN, SALINE MIST 2 SPRAYS NASAL (11:00)
[2025-06-14] MEDS: LIPITOR 10 MG PO (17:34)
[2025-06-14] MEDS: MELATONIN 3 MG PO (22:09)
[2025-06-14] MEDS: PROGRAF 0.5 MG PO (22:09)
[2025-06-14] MEDS: BENTYL 40 MG PO (22:09)
[2025-06-14] MEDS: PROGRAF 2 MG PO (22:10)
[2025-06-14] MEDS: TOPROL XL PO (22:25)
--- NOTE | 2025-06-14 22:27 | PTCARENOTE ---
Patient has Toprol XL 25 mg scheduled for 2200. Pt's heart rate noted to be in the low 50s with frequent drops as low as 45 on the bioinformatics associate. BP is 134/62. INFORMATICS ANALYST notified. Orders given to hold medication. See MAR. Care ongoing.
[2025-06-15] MEDS: TYLENOL 650 MG PO ×5 (00:03→16:19)
[2025-06-15 03:20] VITALS: BP 154/71
[2025-06-15] MEDS: SYNTHROID 75 MCG PO (05:14)
[2025-06-15 06:00] VITALS: BMI 31.1
[2025-06-15 07:35] VITALS: BP 167/71
[2025-06-15 08:05] LABS: Blood Urea Nitrogen 21 mg/dl (9-20); Calcium 9.1 mg/dl (8.4-10.2); Carbon Dioxide 31 mmol/L (22-30); Chloride 99 mmol/L (98-107); Estimated Creatinine Clearance 93 ml/min; Glucose 94 mg/dl (70-99); Potassium 3.7 mmol/L (3.5-5.1); Sodium 134 mmol/L (135-145); eGFR > 60.00
--- NOTE | 2025-06-15 08:37 | CM ---
Bed is available at [facility] today, ambulance transport.
[facility]
Report [phone]
[2025-06-15] MEDS: ELIQUIS 2.5 MG PO (09:17)
[2025-06-15] MEDS: COLACE 100 MG PO (09:17)
[2025-06-15] MEDS: KCL 40 MEQ PO (09:17)
[2025-06-15] MEDS: DECADRON 4 MG IV (09:17)
[2025-06-15] MEDS: PEPCID 20 MG PO (09:18)
[2025-06-15] MEDS: FLOMAX 0.4 MG PO (09:18)
[2025-06-15] MEDS: ENTRESTO 24 MG/26 MG 1 TAB PO (09:18)
[2025-06-15] MEDS: MYFORTIC DELAYED REL. 360 MG PO (09:18)
[2025-06-15] MEDS: ENVARSUS XR 2 MG PO (09:19)
[2025-06-15] MEDS: PROCARDIA XL (EXTENDED RELEASE) 30 MG PO (09:19)
[2025-06-15] MEDS: NEURONTIN 200 MG PO ×2 (09:20→16:20)
[2025-06-15] MEDS: SENOKOT 17.2 MG PO (09:20)
[2025-06-15] MEDS: MIRALAX 17 GRAMS PO (09:35)
[2025-06-15 11:25] VITALS: BP 151/71
--- NOTE | 2025-06-15 12:36 | W.PN.ORTHO ---
Today's Communication / Plan
-
d/c
Assessment
.
Distal Motor Intact: Yes
Dressing:
Clean, dry and intact.
Assessment:
Ppuobtpexbx-gpcjjfmt-jjm and phos levels in range
Renal transplant
--minimize and dose adjust nephrotoxic agents-patient requesting home dosing of Gabapentin,
initially decreased p/o to assess renal function following surgery--discussed w/ Dr Klein-Nephrology--given his
kidney function has remained stable at baseline-we will resume home dose and monitor CMP closely
--taper steroid for pain then resume home dose OP
--IVF
--continue immunomodulators
--Cefadroxil ppx renally adjusted
PACs/PVCs
HFpEF
ES-mezb-lopyaoeo
--stable on tele
--decreased IVF rate-volume status euvolemic
Balance disturbance
Neuropathy
--fall precautions
BPH-increase Flomax bid -voiding well
Pain control
--MSIR+ Gabapentin+ steroid-resume home MS relaxer-pain well controlled
Hx RLE DVT-provoked 2022
--SCD + Eliquis 2.5mg bid
--encourage mobility
Plan
.
Surgery / Date: L TKA w/ Dr Mills 06/12/25
DVT Prophylaxis: Other (Eliquis + SCD)
Activity:
Out of bed.
PT/OT
Discharge Plan: SNF
Subjective
.
.:
Patient resting comfortably.
Vital Signs and Labs
.
Vital Signs and Labs:
Lab Results
06/13/25 07:52
06/15/25 06:58
Temp Pulse Resp BP Pulse Ox
97.9 F 58 16 151/71 100
06/15/25 11:25 06/15/25 11:25 06/15/25 11:25 06/15/25 11:25 06/15/25 11:25
Non-invasive Hgb result: 12.9
Physical Exam
-
HEENT: No pallor, cyanosis, or jaundice. Throat clear.
NECK: Supple. No JVD.
RESPIRATORY: Lungs clear to auscultation.
CVS: S1, S2 normal. RRR.� No murmur, rub or gallop.
ABDOMEN: Soft, non-tender. No distension. BS+/normal.
EXTREMITIES: strength equal, no calf pain with palpation
LATHMAKER: AOx3. No focal deficits. product test engineer grossly intact
[2025-06-15 15:25] VITALS: BP 141/66
== END 2025-06-15 16:30 | DRG 470 ==
LOC: 2 SOUTH 07:58
PROVIDERS: Physician Assistant; Physician Assistant Medical; ADMITTING PHYSICIAN Specialist; FAMILY PHYSICIAN Family Medicine; REFERRING PHYSICIAN Hospitalist
PROC: 0SRD0J9 Replacement of Left Knee Joint with Synthetic Substitute, Cemented, Open Approach (ICD-10-PCS; 2025-06-12)
DX: M17.12 Unilateral primary osteoarthritis, left knee (principal); Z94.0 Kidney transplant status; I13.2 Hypertensive heart and chronic kidney disease with heart failure and with stage 5 chronic kidney disease, or end stage renal disease; I50.30 Unspecified diastolic (congestive) heart failure; E87.6 Hypokalemia; D69.6 Thrombocytopenia, unspecified; E03.9 Hypothyroidism, unspecified; E21.3 Hyperparathyroidism, unspecified; E66.9 Obesity, unspecified; Z68.31 Body mass index [BMI] 31.0-31.9, adult; F32.A Depression, unspecified; F41.9 Anxiety disorder, unspecified; G25.0 Essential tremor; M21.371 Foot drop, right foot; Z79.01 Long term (current) use of anticoagulants
CPT/HCPCS: 36415; 73560; 80048; 80053; 83036; 83735; 83880; 84100; 85018; 85027; 87070; 93005; 97163; 97167; 97530; 97535; C1713; C1776

== ENCOUNTER → 2025-06-19 11:02 | Outpatient (REF) | payer OTHER, MEDICARE, BC, SELFPAY ==
[2025-06-19 11:16] LABS: Hematocrit 37.0 % (39.0-52.0); Hemoglobin 11.8 g/dL (13.0-18.0); Mean Corp Hgb Conc. 31.9 g/dL (33.0-37.0); Mean Corpuscular Volume 93.0 fL (80.0-94.0); Platelet Count 156 10^3/uL (130-400); Red Cell Dist. Width 13.6 % (11.5-14.5)
[2025-06-19 12:13] LABS: ALT (SGPT) 20 U/L (0-50); AST (SGOT) 27 U/L (17-59); Albumin 3.3 g/dl (3.5-5.0); Alkaline Phosphatase 60 U/L (38-126); Blood Urea Nitrogen 23 mg/dl (9-20); Calcium 9.2 mg/dl (8.4-10.2); Carbon Dioxide 32 mmol/L (22-30); Chloride 97 mmol/L (98-107); Glucose 72 mg/dl (70-99); Potassium 3.3 mmol/L (3.5-5.1); Sodium 133 mmol/L (135-145); Total Protein 5.6 g/dl (6.3-8.2); eGFR > 60.00
== END ==
LOC: OLABWHC 11:02
PROVIDERS: ATTENDING PHYSICIAN Family Medicine
DX: E87.6 Hypokalemia (principal); Z47.1 Aftercare following joint replacement surgery; Z94.0 Kidney transplant status; E21.3 Hyperparathyroidism, unspecified; I10 Essential (primary) hypertension
CPT/HCPCS: 36415; 80053; 85027

== ENCOUNTER → 2025-06-26 11:22 | Outpatient (REF) | payer OTHER, MEDICARE, BC, SELFPAY ==
[2025-06-26 11:46] LABS: Hematocrit 32.5 % (39.0-52.0); Hemoglobin 10.8 g/dL (13.0-18.0); Mean Corp Hgb Conc. 33.2 g/dL (33.0-37.0); Mean Corpuscular Volume 90.8 fL (80.0-94.0); Platelet Count 147 10^3/uL (130-400); Red Cell Dist. Width 13.8 % (11.5-14.5)
[2025-06-26 12:03] LABS: ALT (SGPT) 22 U/L (0-50); AST (SGOT) 28 U/L (17-59); Albumin 3.3 g/dl (3.5-5.0); Alkaline Phosphatase 71 U/L (38-126); Blood Urea Nitrogen 23 mg/dl (9-20); Calcium 8.8 mg/dl (8.4-10.2); Carbon Dioxide 32 mmol/L (22-30); Chloride 99 mmol/L (98-107); Glucose 75 mg/dl (70-99); Potassium 3.3 mmol/L (3.5-5.1); Sodium 134 mmol/L (135-145); Total Protein 5.5 g/dl (6.3-8.2); eGFR > 60.00
== END ==
LOC: OLABWHC 11:22
PROVIDERS: ATTENDING PHYSICIAN Family Medicine
DX: Z47.1 Aftercare following joint replacement surgery (principal); E87.6 Hypokalemia; I10 Essential (primary) hypertension
CPT/HCPCS: 36415; 80053; 85027